=== PATIENT | female | born 1975 | race Caucasian/White ===

== ENCOUNTER 2019-01-06 08:00 | Outpatient (CLI) | payer OTHER | END 2019-01-06 23:59 | disposition home or self-care (01) | LOC: LAB.R 08:00 | PROVIDERS: ATTEND Nurse Practitioner Obstetrics & Gynecology | DX: R39.15 Urgency of urination (principal) | CPT/HCPCS: 87077; 87086; 87181 ==

== ENCOUNTER 2019-01-08 08:31 | Emergency (ER) | payer OTHER ==
[2019-01-08 09:14] LABS: BILIRUBIN,URINE NEGATIVE (NEGATIVE); GLUCOSE, URINE (UA) NEGATIVE (NEGATIVE); KETONES,URINE (UA) NEGATIVE (NEGATIVE); LEUKOCYTE ESTERASE, URINE NEGATIVE (NEGATIVE); NITRITE,URINE NEGATIVE (NEGATIVE); OCCULT BLOOD,URINE LARGE (NEGATIVE); PROTEIN,URINE 30 mg/dL (NEGATIVE); UROBILINOGEN,URINE 0.2 (NORMAL) E.U./dL (NORMAL)
[2019-01-08 09:18] LABS: CLARITY,URINE CLEAR (CLEAR)
[2019-01-08 09:19] LABS: BACTERIA,URINE Rare /HPF (None Seen); RBC,URINE 0-5 /HPF (0-5); SQUAMOUS EPITHELIAL CELL,UR RARE Squamous (<= Few)
[2019-01-08 09:20] LABS: HCG UR QUAL NEGATIVE
[2019-01-08 10:05] LABS: BASOPHILS % (AUTO) 0.3 %; EOSINOPHILS % (AUTO) 0.3 %; HGB - HEMOGLOBIN 13.6 g/dL (12.0-16.0); LYMPHOCYTES # (AUTO) 1.4 10^3/uL (1.5-3.5); LYMPHOCYTES % (AUTO) 14.5 %; MEAN CORPUSCULAR HEMOGLOBIN 29.2 pg (27.0-31.0); MEAN CORPUSCULAR HGB CONC 32.2 g/dL (32.0-36.0); MEAN CORPUSCULAR VOLUME 90.6 fL (81.0-99.0); MEAN PLATELET VOLUME 10.2 fL (7.9-10.8); MONOCYTES % (AUTO) 10.5 %; NEUTROPHILS # (AUTO) 7.1 10^3/uL (1.5-6.6); PLT - PLATELET COUNT 170 10^3/uL (130-450); RED BLOOD COUNT 4.66 10^6/uL (4.20-5.40); RED CELL DISTRIBUTION WIDTH 12.1 % (12.0-15.0); WHITE BLOOD COUNT 9.6 x10^3/uL (4.8-10.8)
[2019-01-08 10:12] LABS: CALCIUM 9.2 mg/dL (8.5-10.3); CREATININE 0.6 mg/dL (0.4-1.0)
[2019-01-08] MEDS ORDERED: IOVERSOL 320 100 ML VIAL IVP ONE ×2 (10:13→10:51)
--- NOTE | 2019-01-08 11:30 | CT Report ---
Reason: RLQ, pelvic pain Procedure Date: 01/08/2019 Accession Number: [id number] / [id number] Procedure: CT - Abdomen/Pelvis W CPT Code: FULL RESULT: EXAM: CT ABDOMEN AND PELVIS EXAM DATE: 01/08/2019 10:50 AM. CLINICAL HISTORY: RLQ, pelvic pain. COMPARISONS: None. TECHNIQUE: Routine helical CT imaging was performed through the abdomen and pelvis. IV contrast: 80 cc Optiray 320. Enteric contrast: No. Reconstructions: Coronal and sagittal. In accordance with CT protocol optimization, one or more of the following dose reduction techniques were utilized for this exam: automated exposure control, adjustment of mA and/or KV based on patient size, or use of iterative reconstructive technique. FINDINGS: Lung Bases: Unremarkable. Liver: Normal. No masses. Gallbladder/Bile Ducts: Unremarkable. Spleen: Normal. Pancreas: Normal. Adrenal Glands: Normal. Kidneys: Right kidney heterogeneous with ill-defined lower density regions. No hydronephrosis. The ureter and renal pelvis shows uroepithelial enhancement. Left kidney unremarkable Peritoneal Cavity/Bowel: Normal. No free fluid, free air or adenopathy. No masses or acute inflammatory process. The appendix is well visualized and normal. Pelvic Organs: Right ovary 1.7 cm corpus luteal cyst. Nabothian cysts in the cervix. Small free fluid in pelvis The bladder and visualized pelvic organs are otherwise within normal limits. Vasculature: No aneurysms or other significant abnormality. Bones: No significant abnormality. Other: None. IMPRESSION: 1. Right kidney heterogeneous with ill-defined lower density regions with uroepithelial enhancement may represent pyelonephritis.. 2. Right ovary 1.7 cm corpus luteal cyst RADIA
[2019-01-08 11:43] VITALS: BP 141/99
[2019-01-08] MEDS ORDERED: cefTRIAXone 1 GM in SODIUM CHLORIDE 0.9% MINIBAG 100 ML IV STA (11:43)
--- NOTE | 2019-01-08 11:47 | ED Physician Documentation ---
PD HPI ABD PAIN - Stated complaint Stated Complaint: FEMALE /FEVER - Chief complaint Chief Complaint: UTI - History obtained from History obtained from: Patient - History of Present Illness Timing - onset: How many days ago (4) Timing - duration: Days (5) Timing - details: Gradual onset Severity Comments: moderate Quality: Aching (abdomen and R low back) Location: Other (R low back and lower abdomen) Radiation: Right flank Improved by: Other (nothing) Worsened by: Palpation Associated symptoms: Fever, Nausea, Hematuria. No: Vomiting, Hematemesis, Diarrhea, Constipation, Melena, Hematochezia, Dysuria, Near syncope / syncope Similar symptoms before: Has not had sx before Recently seen: Clinic (started on macrobid for a UTI 2 days ago) - Treatment prior to arrival Treatment prior to arrival: macrobid Review of Systems Unable to obtain: Uncooperative Constitutional: reports: Fever, Fatigue, Other (malaise) Eyes: reports: Reviewed and negative Cardiac: reports: Reviewed and negative. denies: Chest pain / pressure Respiratory: reports: Reviewed and negative GI: reports: Abdominal Pain, Nausea. denies: Vomiting : reports: Frequency, Hematuria Skin: reports: Reviewed and negative Musculoskeletal: reports: Back pain Neurologic: reports: Reviewed and negative Immunocompromised: reports: Reviewed and negative PD PAST MEDICAL HISTORY - Past Medical History Past Medical History: No - Past Surgical History Past Surgical History: No - Present Medications Home Medications: Ambulatory Orders Medication Instructions Recorded Confirmed Cefpodoxime Proxetil [Vantin] 200 mg PO Q12H 10 Days #20 tablet 01/08/19 - Allergies Allergies/Adverse Reactions: Allergies Allergy/AdvReac Type Severity Reaction Status Date / Time Sulfa (Sulfonamide Allergy Intermediate Hives Verified 01/08/19 08:42 Antibiotics) - Social History Does the pt smoke?: No Smoking Status: Never smoker PD ED PE NORMAL - Vitals Vital signs reviewed: Yes - General General: Alert and oriented X 3, No acute distress, Well developed/nourished - HEENT HEENT: Atraumatic, Pharynx benign - Neck Neck: Supple, no meningeal sign - Cardiac Cardiac: Strong equal pulses, Other (tachycardic, regular rhythm) - Respiratory Respiratory: No respiratory distress - Abdomen Abdomen: Soft, Non distended, Other (RLQ tenderness and suprapubic tenderness is mild, no guarding or rebound) - Female Female : Deferred, Other (patient had a pelvic exam 2 days ago by her [employer] that was normal and declined a repeat exam) - Rectal Rectal: Deferred - Back Back: Other (mild R CVA tenderness ) - Derm Derm: Normal color, Warm and dry, No rash - Extremities Extremities: No deformity, No edema - Neuro Neuro: Alert and oriented X 3 Eye Opening: Spontaneous Motor: Obeys Commands Verbal: Oriented GCS Score: 15 - Psych Psych: Normal mood, Normal affect Results - Vitals Vitals: Vital Signs - 24 hr 01/08/19 01/08/19 08:39 11:42 Temperature 37.2 C 38.1 C H Heart Rate 116 H 121 H Respiratory 16 16 Rate Blood Pressure 136/86 H 141/99 H O2 Saturation 100 100 Oxygen O2 Source Room air - Labs Labs: Laboratory Tests 01/08/19 01/08/19 01/08/19 09:00 09:00 09:45 WBC 9.6 RBC 4.66 Hgb 13.6 Hct 42.2 MCV 90.6 MCH 29.2 MCHC 32.2 RDW 12.1 Plt Count 170 MPV 10.2 Neut # (Auto) 7.1 H Lymph # (Auto) 1.4 L [place] # (Auto) 1.0 Eos # (Auto) 0.0 Baso # (Auto) 0.0 Absolute Nucleated RBC 0.00 Nucleated RBC % 0.0 Sodium Potassium Chloride Carbon Dioxide Anion Gap BUN Creatinine Estimated GFR (MDRD) Glucose Calcium Urine Color YELLOW Urine Clarity CLEAR Urine pH 6.0 Ur Specific [place] 1.010 1.010 Urine Protein 30 H Urine Glucose (UA) NEGATIVE Urine Ketones NEGATIVE Urine Occult Blood LARGE H Urine Nitrite NEGATIVE Urine Bilirubin NEGATIVE Urine Urobilinogen 0.2 (NORMAL) Ur Leukocyte Esterase NEGATIVE Urine RBC 0-5 Urine WBC 0-3 Ur Squamous Epith Cells RARE Squamous Urine Bacteria Rare Ur Microscopic Review INDICATED Urine Culture Comments NOT INDICATED Urine HCG, Qual NEGATIVE 01/08/19 09:45 WBC RBC Hgb Hct MCV MCH MCHC RDW Plt Count MPV Neut # (Auto) Lymph # (Auto) [place] # (Auto) Eos # (Auto) Baso # (Auto) Absolute Nucleated RBC Nucleated RBC % Sodium 137 Potassium 4.1 Chloride 100 L Carbon Dioxide 28 Anion Gap 9.0 BUN 11 Creatinine 0.6 Estimated GFR (MDRD) 110 Glucose 105 H Calcium 9.2 Urine Color Urine Clarity Urine pH Ur Specific [place] Urine Protein Urine Glucose (UA) Urine Ketones Urine Occult Blood Urine Nitrite Urine Bilirubin Urine Urobilinogen Ur Leukocyte Esterase Urine RBC Urine WBC Ur Squamous Epith Cells Urine Bacteria Ur Microscopic Review Urine Culture Comments Urine HCG, Qual - Rads (name of study) CT abd/pelvis Radiology: Final report received (R pyelonephritis and corpus luteal cyst), See rad report PD MEDICAL DECISION MAKING - ED course Complexity details: reviewed old records, reviewed results, re-evaluated patient, considered differential, d/w patient ED course: ddx- UTI, pyelonephritis, vaginitis, TOA, appendicitis, PID, ovarian cyst 43 y/o F seen recently for urinary symptoms and hematuria, started on macrobid now with worsening back pain, abdominal pain and fever of 102 at home yesterday. Pt is well appearing, nontoxic, not septic, mild tachycardia, abdomen iwth RLQ tenderness. UA shows hematuria but no obvious infection thus given RLQ tenderness will obtain a CT to evaluate the appendix, ovaries, etc. Pt declined analgesics or antiemetics in the ED. CT confirmed a r Sided pyelonephritis and pt also has a R corpus luteal cyst which may have accounted for her RLQ tenderness. Given a dose of ceftriaxone in the ED and pt is stable with uncomplicated pyelonephritis to go home with outpt antibiotics. Departure - Departure Disposition: 01 Home, Self Care Clinical Impression: Pyelonephritis, Corpus luteum cyst of right ovary Condition: Stable Record reviewed to determine appropriate education?: Yes Instructions: ED Kidney Infec Female Follow-Up: Saima King ARNP, URGENT CARE PHYSICIAN ASSISTANT-C [Primary Care Provider] - As Needed Prescriptions: Cefpodoxime Proxetil [Vantin] 200 mg PO Q12H 10 Days #20 tablet Comments: Your labs today were normal except for blood in your urine. You do have a Right sided pyelonephritis and a Right corpus luteal cyst of your ovary which is likely causing your pain. You were given ceftriaxone in the ED today and should complete the full course of antibiotic as an outpatient. Discontinue the macrobid and instead take the cefpodoxime. Discharge Date/Time: 01/08/19 12:35
== END 2019-01-08 12:35 | disposition home or self-care (01) ==
LOC: ED 08:31
DX: N12 Tubulo-interstitial nephritis, not specified as acute or chronic (principal); R31.9 Hematuria, unspecified; N83.11 Corpus luteum cyst of right ovary
CPT/HCPCS: 36415; 74177; 80048; 81001; 81025; 85025; 96365; 99284; Q9967; 81003; 87086

== ENCOUNTER 2023-04-26 10:00 | Outpatient (CLI) | payer OTHER ==
[2023-04-26 17:58] LABS: BILIRUBIN,URINE NEGATIVE (NEGATIVE); GLUCOSE, URINE (UA) NEGATIVE (NEGATIVE); KETONES,URINE (UA) NEGATIVE (NEGATIVE); LEUKOCYTE ESTERASE, URINE NEGATIVE (NEGATIVE); NITRITE,URINE NEGATIVE (NEGATIVE); OCCULT BLOOD,URINE NEGATIVE (NEGATIVE); PH,URINE 5.5 PH (5.0-7.5); PROTEIN,URINE NEGATIVE (NEGATIVE); UROBILINOGEN,URINE 0.2 (NORMAL) E.U./dL (NORMAL)
[2023-04-26 18:01] LABS: CLARITY,URINE CLEAR (CLEAR)
[2023-04-26 18:13] LABS: BACTERIA,URINE None Seen /HPF (None Seen); RBC,URINE None Seen /HPF (0-5); SQUAMOUS EPITHELIAL CELL,UR RARE Squamous (<= Few); WBC,URINE 0-3 /HPF (0-5)
== END 2023-04-26 10:15 | disposition home or self-care (01) ==
LOC: LAB.N 10:00
PROVIDERS: ATTEND Physician Assistant Medical
DX: R30.0 Dysuria (principal)
CPT/HCPCS: 81001; 87086

== ENCOUNTER 2023-04-28 11:24 | Emergency (ER) | payer OTHER ==
[2023-04-28 11:54] LABS: BASOPHILS % (AUTO) 0.5 %; EOSINOPHILS # (AUTO) 0.1 10^3/uL (0.0-0.7); EOSINOPHILS % (AUTO) 1.8 %; HCT - HEMATOCRIT 39.5 % (37.0-47.0); HGB - HEMOGLOBIN 13.1 g/dL (12.0-16.0); LYMPHOCYTES # (AUTO) 1.5 10^3/uL (1.5-3.5); LYMPHOCYTES % (AUTO) 24.5 %; MEAN CORPUSCULAR HEMOGLOBIN 28.7 pg (27.0-31.0); MEAN CORPUSCULAR HGB CONC 33.2 g/dL (32.0-36.0); MEAN CORPUSCULAR VOLUME 86.4 fL (81.0-99.0); MEAN PLATELET VOLUME 8.8 fL (7.9-10.8); MONOCYTES # (AUTO) 0.6 10^3/uL (0.0-1.0); MONOCYTES % (AUTO) 10.2 %; NEUTROPHILS # (AUTO) 3.8 10^3/uL (1.5-6.6); NEUTROPHILS % (AUTO) 62.7 %; PLT - PLATELET COUNT 271 10^3/uL (130-450); RED BLOOD COUNT 4.57 10^6/uL (4.20-5.40); RED CELL DISTRIBUTION WIDTH 11.6 % (12.0-15.0); WHITE BLOOD COUNT 6.1 x10^3/uL (4.8-10.8)
[2023-04-28 12:09] LABS: ALBUMIN 4.4 g/dL (3.2-5.5); ALBUMIN/GLOBULIN RATIO 1.4 (1.0-2.2); BILIRUBIN,TOTAL 0.6 mg/dL (0.2-1.0); CALCIUM 9.3 mg/dL (8.5-10.3); CREATININE 0.6 mg/dL (0.6-1.3); POTASSIUM 3.5 mmol/L (3.5-4.5); TOTAL PROTEIN 7.6 g/dL (6.4-8.9)
[2023-04-28 13:35] LABS: BILIRUBIN,URINE NEGATIVE (NEGATIVE); CLARITY,URINE CLEAR (CLEAR); GLUCOSE, URINE (UA) NEGATIVE (NEGATIVE); KETONES,URINE (UA) 15 mg/dL (NEGATIVE); LEUKOCYTE ESTERASE, URINE NEGATIVE (NEGATIVE); NITRITE,URINE NEGATIVE (NEGATIVE); OCCULT BLOOD,URINE NEGATIVE (NEGATIVE); PROTEIN,URINE NEGATIVE (NEGATIVE); UROBILINOGEN,URINE 0.2 (NORMAL) E.U./dL (NORMAL)
[2023-04-28 13:37] LABS: HCG UR QUAL NEGATIVE
--- NOTE | 2023-04-28 13:49 | ED Physician Documentation ---
History of Present Illness - Stated complaint Stated Complaint: FEVER,LOWER BACK PX,HINES,NAUSEA - Chief complaint Chief Complaint: Abd Pain - Additonal information Additional information: 48-year-old female with no significant past medical history aside from previous pyelonephritis. Patient reports that she has been feeling ill and unwell now for about the last week or so she originally presented to urgent care walk-in clinic where her urine was found to be unremarkable clean they started her on Macrobid pain has continued and persisted now to her right flank region. She said that she has been having fevers at home generalized body aches and just an unwell feeling. She says with her previous pyelonephritis her urine was clean and her labs were unremarkable but that there was a CT scan that ultimately diagnosed her pyelonephritis. No diarrhea no nausea vomiting. No vaginal discharge no recent change in sexual partner PD PAST MEDICAL HISTORY - Past Surgical History Past Surgical History: No - Present Medications Home Medications: Ambulatory Orders Medication Instructions Recorded Confirmed Cefpodoxime Proxetil [Vantin] 200 mg PO Q12H 10 Days #20 tablet 01/08/19 Cefpodoxime Proxetil [Vantin] 200 mg PO Q12H 14 Days #28 tablet 04/28/23 - Allergies Allergies/Adverse Reactions: Allergies Allergy/AdvReac Type Severity Reaction Status Date / Time Sulfa (Sulfonamide Allergy Intermediate Hives Verified 04/28/23 11:37 Antibiotics) - Social History Does the pt smoke?: No Smoking Status: Never smoker PD ED PE NORMAL - Vitals Vital signs reviewed: Yes - General General: Alert and oriented X 3 - HEENT HEENT: Atraumatic, Moist mucous membranes - Cardiac Cardiac: RRR, No gallop - Respiratory Respiratory: No respiratory distress, Clear bilaterally - Abdomen Abdomen: Normal bowel sounds, Soft - Back Back: Other (Right CVA tenderness) - Derm Derm: Normal color, Warm and dry, No rash - Neuro Neuro: Alert and oriented X 3 - Psych Psych: Normal mood Results - Vitals Vitals: Vital Signs - 24 hr 04/28/23 04/28/23 04/28/23 11:35 13:31 14:16 Temperature 37.2 C Heart Rate 136 H 104 H 94 Respiratory 15 16 16 Rate Blood Pressure 151/96 H 144/92 H 138/97 H O2 Saturation 99 94 96 04/28/23 15:54 Temperature Heart Rate 95 Respiratory 16 Rate Blood Pressure 132/96 H O2 Saturation 98 Oxygen O2 Source Room air - Labs Labs: Laboratory Tests 04/28/23 04/28/23 04/28/23 11:49 11:49 11:53 WBC 6.1 RBC 4.57 Hgb 13.1 Hct 39.5 MCV 86.4 MCH 28.7 MCHC 33.2 RDW 11.6 L Plt Count 271 MPV 8.8 Neut # (Auto) 3.8 Lymph # (Auto) 1.5 [place] # (Auto) 0.6 Eos # (Auto) 0.1 Baso # (Auto) 0.0 Absolute Nucleated RBC 0.00 Nucleated RBC % 0.0 Sodium 134 L Potassium 3.5 Chloride 100 L Carbon Dioxide 25 Anion Gap 9.0 BUN 8 Creatinine 0.6 Estimated GFR (MDRD) 107 Glucose 106 H Calcium 9.3 Total Bilirubin 0.6 AST 25 ALT 25 Alkaline Phosphatase 51 Total Protein 7.6 Albumin 4.4 Globulin 3.2 Albumin/Globulin Ratio 1.4 Lipase 21 Urine Color YELLOW Urine Clarity CLEAR Urine pH 6.0 Ur Specific [place] <=1.005 Urine Protein NEGATIVE Urine Glucose (UA) NEGATIVE Urine Ketones 15 H Urine Occult Blood NEGATIVE Urine Nitrite NEGATIVE Urine Bilirubin NEGATIVE Urine Urobilinogen 0.2 (NORMAL) Ur Leukocyte Esterase NEGATIVE Ur Microscopic Review NOT INDICATED Urine Culture Comments NOT INDICATED Urine HCG, Qual NEGATIVE Nasal Adenovirus (PCR) Nasal B. parapertussis DNA (PCR) Nasal Coronavir 229E PCR Nasal Coronavir HKU1 PCR Nasal Coronavir NL63 PCR Nasal Coronavir OC43 PCR Nasal Enterovir/Rhinovir PCR Nasal Influenza B PCR Nasal Influenza A PCR Nasal Parainfluen 1 PCR Nasal Parainfluen 2 PCR Nasal Parainfluen 3 PCR Nasal Parainfluen 4 PCR Nasal RSV (PCR) Nasal B.pertussis DNA PCR Nasal C.pneumoniae (PCR) Jaylan Human Metapneumo PCR Nasal M.pneumoniae (PCR) Nasal SARS-CoV-2 (PCR) 04/28/23 14:10 WBC RBC Hgb Hct MCV MCH MCHC RDW Plt Count MPV Neut # (Auto) Lymph # (Auto) [place] # (Auto) Eos # (Auto) Baso # (Auto) Absolute Nucleated RBC Nucleated RBC % Sodium Potassium Chloride Carbon Dioxide Anion Gap BUN Creatinine Estimated GFR (MDRD) Glucose Calcium Total Bilirubin AST ALT Alkaline Phosphatase Total Protein Albumin Globulin Albumin/Globulin Ratio Lipase Urine Color Urine Clarity Urine pH Ur Specific [place] Urine Protein Urine Glucose (UA) Urine Ketones Urine Occult Blood Urine Nitrite Urine Bilirubin Urine Urobilinogen Ur Leukocyte Esterase Ur Microscopic Review Urine Culture Comments Urine HCG, Qual Nasal Adenovirus (PCR) NOT DETECTED Nasal B. parapertussis DNA (PCR) NOT DETECTED Nasal Coronavir 229E PCR NOT DETECTED Nasal Coronavir HKU1 PCR NOT DETECTED Nasal Coronavir NL63 PCR NOT DETECTED Nasal Coronavir OC43 PCR NOT DETECTED Nasal Enterovir/Rhinovir PCR NOT DETECTED Nasal Influenza B PCR NOT DETECTED Nasal Influenza A PCR NOT DETECTED Nasal Parainfluen 1 PCR NOT DETECTED Nasal Parainfluen 2 PCR NOT DETECTED Nasal Parainfluen 3 PCR NOT DETECTED Nasal Parainfluen 4 PCR NOT DETECTED Nasal RSV (PCR) NOT DETECTED Nasal B.pertussis DNA PCR NOT DETECTED Nasal C.pneumoniae (PCR) NOT DETECTED Jaylan Human Metapneumo PCR NOT DETECTED Nasal M.pneumoniae (PCR) NOT DETECTED Nasal SARS-CoV-2 (PCR) NOT DETECTED - Rads (name of study) CT KUB Relevant Findings:: Final report received, EMP independent interpretation of test (No hydronephrosis no renal calculi. Moderate burden of stool most likely due to constipation.) PD Medical Decision Making - ED course ED course: Labs are complete for this patient no leukocytosis, no significant electrolyte abnormalities, lipase normal urine unremarkable, no leukocytes no nitrates no WBCs, respiratory panel negative. CT KUB also complete does not reveal any significant abnormalities or acute findings aside from constipation. CT does show mild groundglass opacities in the left lower lobe patient has absolutely no symptoms or findings that could be correlated with pneumonia not concerned about this being related to infectious in etiology. She has no hydronephrosis no renal calculi. Because patient had this presentation similarly a few years ago we decided to go ahead and treat this as a pyelonephritis with her right CVA tenderness her persistent tachycardia fevers and chills that she has been experiencing at home. We gave her a one-time dose of IM Rocephin And started her on p.o. cefpodoxime outpatient. Patient was given strict ER return precautions all questions answered safe for discharge at this time Departure - Departure Disposition: 01 Home, Self Care Clinical Impression: Pyelonephritis Condition: Good Instructions: ED Kidney Infec Female Prescriptions: Cefpodoxime Proxetil [Vantin] 200 mg PO Q12H 14 Days #28 tablet Comments: Thank you for trusting us with your care. We have treated you with 1 round of IV antibiotics Rocephin here in the emergency department and started you on an antibiotic called cefpodoxime for your kidney infection. If after the next 2 to 3 days you are not improving please come back to the emergency department for reevaluation. Please follow-up with your primary care provider for further evaluation of this being her second a typical presentation of a kidney infection. Please take 200 mg of cefpodoxime twice a day for the next 10 to 14 days I have prescribed for 14 days but if after 10 days you feel like symptoms have fully resolved you can stop taking the antibiotics then. I have sent your prescription to [facility] pharmacy. You will take cefpodoxime first thing tomorrow morning and thereafter every 12 hours. Please come back to the emergency department if you are having any worsening symptoms, worsening fevers or chills, or any other concerning symptoms. Wishing you a speedy recovery Joseline! Forms: PCP List Discharge Date/Time: 04/28/23 17:07
--- NOTE | 2023-04-28 15:04 | CT Report ---
PROCEDURE: KUB INDICATIONS: right flank pain TECHNIQUE: A CT scan of the abdomen and pelvis was performed without the use of intravenous contrast. Images we re recorded and evaluated at appropriate window settings. Reformats: coronal and sagittal. For radiat ion dose reduction, the following was used: automated exposure control, adjustment of mA and/or kV ac cording to patient size. COMPARISON: CT abdomen pelvis 01/08/2019. FINDINGS: Image quality: Diagnostic. Kidneys and ureters: No hydronephrosis. No contour-deforming mass. No contour-deforming mass. Bladder: Bladder wall thickness is normal, accounting for underdistention. No calcified bladder stone s. OTHER: Lower chest: Scar versus consolidation within the lingula. Mild groundglass in the left lower lobe. Liver: No contour-deforming mass. Gallbladder and biliary tree: No radiopaque stones or wall thickening. No biliary dilation. Spleen: No splenomegaly. Splenule is noted. Pancreas: No pancreatic ductal dilation. Adrenals: No adrenal nodule. Stomach, bowel and peritoneum: No bowel distension. No pathologic free fluid. Moderate burden of stoo l throughout the colon. Lymph nodes: No central or retroperitoneal adenopathy. Vessels: No infrarenal aortic aneurysm. Reproductive organs: Unremarkable. Pelvic lymph nodes: No adenopathy by size criteria. Bones: No aggressive osseous abnormality. Other: Small fat-containing ventral hernia. No inguinal hernias. IMPRESSION: 1.No hydronephrosis or obstructing renal stone. 2.Scar versus consolidation within the lingula. Mild groundglass opacity in the left lower lobe. Find ings may be infectious in etiology. 3.Moderate burden of stool throughout the colon, correlate for constipation. Reviewed by: Diallo Saenz MD on 04/28/2023 3:03 PM PST Approved by: Diallo Saenz MD on 04/28/2023 3:03 PM PST Station ID: [id number]
[2023-04-28 15:05] LABS: B. PARAPERTUSSIS- RESP PCR PAN NOT DETECTED; B. PERTUSSIS- RESP PCR PANEL NOT DETECTED; C. PNEUMONIAE- RESP PCR PANEL NOT DETECTED; CORONAVIRUS 229E-RESP PCR NOT DETECTED; CORONAVIRUS HKU1-RESP PCR NOT DETECTED; CORONAVIRUS NL63-RESP PCR NOT DETECTED; CORONAVIRUS OC43-RESP PCR NOT DETECTED; HUMAN METAPNEUMOVIRUS NOT DETECTED; INFLUENZA A- RESP PCR PANEL NOT DETECTED; INFLUENZA B - RESP PCR PANEL NOT DETECTED; M. PNEUMONIAE- RESP PCR PANEL NOT DETECTED; PARAINFLUENZA VIRUS 1 NOT DETECTED; PARAINFLUENZA VIRUS 2 NOT DETECTED; PARAINFLUENZA VIRUS 3 NOT DETECTED; PARAINFLUENZA VIRUS 4 NOT DETECTED; RHINOVIRUS/ENTEROVIRUS NOT DETECTED; RSV- RESP PCR PANEL NOT DETECTED; SARS-CoV-2 -RESP PCR PANEL NOT DETECTED
[2023-04-28 15:57] VITALS: BP 132/96; O2SAT 98
[2023-04-28] MEDS: cefTRIAXone 1 GM in SODIUM CHLORIDE 0.9% MINIBAG 100 ML IV STA (16:43)
[2023-04-28] MEDS: cefTRIAXone 1 GM VIAL IM STA (16:48)
[2023-04-28] MEDS: LIDOCAINE 1% 2 ML VIAL MC ONE (16:50)
== END 2023-04-28 17:07 | disposition home or self-care (01) ==
LOC: ED 11:24
DX: N12 Tubulo-interstitial nephritis, not specified as acute or chronic (principal); Z88.2 Allergy status to sulfonamides
CPT/HCPCS: 36415; 80053; 81001; 81003; 81025; 83690; 85025; 87086; 87633; 96372; 99284